=== PATIENT | male | born 1935 | race Caucasian/White ===

== ENCOUNTER → 2018-01-24 06:56 | Outpatient (CLI) | payer MEDICARE, BC | END | disposition home or self-care (01) | LOC: D.CT 01-17 16:00 | DX: I73.9 Peripheral vascular disease, unspecified (principal) ==

== ENCOUNTER 2018-02-05 07:40 | Inpatient (IN) | payer MEDICARE, BC ==
[2018-02-03 13:31] LABS: APPEARANCE CLEAR (CLEAR); BILIRUBIN NEGATIVE (NEGATIVE); COLOR YELLOW (YELLOW); GLUCOSE NEGATIVE (NEGATIVE); KETONE NEGATIVE (NEGATIVE); NITRITE NEGATIVE (NEGATIVE); PROTEIN NEGATIVE (NEGATIVE); SPECIFIC GRAVITY 1.015 (1.005-1.020); UROBILINOGEN NORMAL (NORMAL)
[2018-02-03 13:35] LABS: BASOPHILS 0.2 % (0-2); EOSINOPHILS 1.2 % (0-7); HEMATOCRIT 41.1 % (42.0-54.0); IMMATURE GRANULOCYTES 0.4 % (0-5); LYMPHOCYTES 23.9 % (15-50); MCH 30.4 pg (26.0-34.0); MCHC 34.1 g/dL (31.0-37.0); MCV 89.3 fL (80.0-100.0); MEAN PLATELET VOLUME 9.7 fL (7.4-10.4); MONOCYTES 8.9 % (2-11); NEUTROPHILS 65.4 % (40-80); PLATELET COUNT 171 10x3/uL (130-400); RDW 13.6 % (11.5-14.5); WBC 8.5 10x3/uL (4.8-10.8)
[2018-02-03 14:10] LABS: APTT 33.9 SECONDS (22.8-39.4); INR 1.27 (0.85-1.17); PROTIME 15.4 SECONDS (11.6-15.0)
[2018-02-03 14:20] LABS: ANION GAP 13.5 mmol/L (8-16); BILIRUBIN - TOTAL 0.69 mg/dL (0.2-1.3); CALCIUM 9.3 mg/dL (8.5-10.1); CARBON DIOXIDE 27.8 mmol/L (21.0-32.0); CREATININE - SERUM 1.1 mg/dL (0.6-1.3); POTASSIUM - SERUM 4.3 mmol/L (3.5-5.1); PROTEIN - SERUM 7.3 g/dL (6.4-8.2)
[~2018-02-05] VITALS: Ht 177.8 cm; Wt 93.0 kg
[2018-02-05] VITALS (32 sets, daily range): BP systolic 106–149; BP diastolic 53–77; BMI 27.6; BMI 28.7
--- NOTE | ~2018-02-05 | MORECARE ---
CASE MANAGEMENT DISCHARGE SUMMARY PATIENT: GRACE DAIGLE UNIT: [id number] ADM DATE: 02/05/18 AGE: 82 : 35 SEX: M ROOM/BED: D[facility] AUTHOR: ARUN,DOC PHYSICIAN: REFERRING PHYSICIAN: JACINTO PINK MD DATE OF SERVICE: 02/07/18 Discharge Plan Patient Name: GRACE DAIGLE Facility: [facility]:[place] : 1935 Planned Disposition: Home Anticipated Discharge Date: Discharge Date: 02/07/2018 Expected LOS: Initial Reviewer: [email or web address] Initial Review Date: 02/06/2018 Generated: 02/07/18 3:22 pm Comments DCP- Discharge Planning Updated by [email or web address]: Marybel Salomon on 02/06/18 11:[address] Patient Name: GRACE DAIGLE Admission Status: Urgent Accout number: [id number] Admission Date: 02-05-2018 : 1935 Admission Diagnosis: Attending: JACINTO PINK Current LOS: 1 Anticipated DC Date: Planned Disposition: Home Primary Insurance: MEDICARE A & B Discharge Planning Comments: CM met with patient at bedside after obtaining verbal consent. Patient states he plans on returning home after discharge with his . Patient states he will have family transport him home via private vehicle. Patient denies any discharge needs at this time. CM will continue to follow and assist as needed for discharge planning / needs. Computer Networking Instructor: Marybel Salomon DCPIA - Discharge Planning Initial Assessment Updated by [email or web address]: Marybel Salomon on 02/06/18 12:22 pm * Is the patient Alert and Oriented? Yes * How many steps to enter\exit or inside your home? * PCP Yomaira * Pharmacy [facility] until end of the year then will switch to [facility] on Feb 18 2018 * Preadmission Environment Home with Family * ADLs Independent * Equipment None * List name and contact numbers for known caregivers / representatives who currently or will assist patient after discharge: Delmi Daigle spouse [phone] * Verbal permission to speak to the caregivers and representatives has been obtained from the patient. N/A * Community resources currently utilized None * Additional services required to return to the preadmission environment? No * Can the patient safely return to the preadmission environment? Yes * Has this patient been hospitalized within the prior 30 days at any hospital? No Last DP export: 02/06/18 11:26 Patient Name: GRACE DAIGLE Page [id number] at 1423 All edits/amendments must be made on the electronic document DICTATION DATE: 02/07/181421 [employer] FORCES MEDICAL SERGEANT: MAYNOR 02/07/181421 RPT#: [id number] DC DATE:02/07/18 STATUS: DIS IN [facility] [address] [place] [address] END OF REPORT
--- NOTE | ~2018-02-05 | OP ---
PATIENT NAME: GRACE DAIGLE MEDICAL RECORD: [id number] :35 LOCATION:D.[facility] D.CV03 ADMISSION DATE:02/05/18 SURGEON: JACINTO PINK MD DATE OF OPERATION: 02/05/2018 SURGEON: Jacinto Pink MD CENTRIFUGAL CASTING MACHINE TENDER: Dr. Max ANESTHESIA: General endotracheal, Dr. Espana. OPERATION PERFORMED: Endovascular stent repair of aortoiliac aneurysm. OPERATION PERFORMED: 1. Percutaneous access bilaterally with a closure device, #09949-11. 2. Catheter sheath placement into the aorta, 85739-79. 3. Endovascular stent repair utilizing an aortobiiliac endograft, 24440. 4. Extension prosthesis distally, 69501. PREOPERATIVE DIAGNOSIS: Large aortoiliac artery aneurysm. POSTOPERATIVE DIAGNOSIS: Large aortoiliac artery aneurysm. INDICATION FOR OPERATION: Large saccular abdominal aortic aneurysm. Contrast 160 mL, fluoroscopy time 21 minutes at 55 seconds. ESTIMATED BLOOD LOSS: Less 100 mL. FINDINGS OF THE OPERATION: 1. Aortogram demonstrated the large aortoiliac artery aneurysm and define the anatomic features. 2. Post-repair aortogram demonstrates no endoleak. 3. 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 4. Aortogram and right external iliac and common femoral artery arteriogram demonstrates no leaks and no stenosis after ProGlide closure of the large sheath defect. DESCRIPTION OF PROCEDURE: After informed consent, adequate preoperative medication evaluation, the patient was brought to the operating room, placed on the table in the supine position. After induction of general endotracheal anesthesia and application of appropriate monitoring devices, the chest, abdomen, and both legs were prepped and draped in sterile field, utilizing Betadine scrub, alcohol, and Betadine solution. Betadine-impregnated drape was also used. Ultrasound guidance was used for access on the right and utilizing a micropuncture technique, a 4-British sheath was placed. The contralateral side was cannulated with a micropuncture catheter exchanged for a 7-British sheath, which was secured. Attention was then turned towards the right groin. A small incision made and dissection carried down to the vessel utilizing 2 ProGlide sheath closure devices at 10 o'clock and 2 o'clock were deployed. Exchange was made for a 6-British sheath. The patient was given a calculated dose of heparin. The right exchange for a Glidewire was made with ELGX stiff wire and the large sheath deployed on the ipsilateral side. A 25 x 100 x 20 x 40 AFX2 bifurcated device was loaded onto the stiff wire and advanced. A contralateral wire was OPERATIVE REPORT [id number] GRACE DAIGLE advanced through the sheath and snared on the contralateral side and brought through the sheath. The device was advanced into the aorta and the proximal limb deployed. The contralateral side was then deployed as well as the right iliac limb. Attention was then turned towards the renal arteries and an aortogram was performed and the AFX extension placed and deployed just below the renal arteries. Post-deployment arteriogram demonstrated good flow into both renal arteries. Attention was then turned towards the right common iliac artery and an arteriogram was performed, delineating the takeoff of the right hypogastric artery. An extension device was then deployed from the right iliac limb and terminating at the takeoff of the hypogastric artery. The sheath was cannulated with the coated balloon and the aorta and limbs were dilated. An aortogram demonstrated good placement of all devices and no endoleaks. The patient was then given a calculated dose of protamine to reverse the heparin. The ProGlide sutures were deployed on the right and the sheaths and wires removed. Attention was then turned toward the left groin and an 8-British Angio-Seal deployed with good hemostasis on both sides. After protamine administration, hemostasis was achieved. The arteriogram performed after closure of the Perclose demonstrated no stenosis, no extravasation of contrast and good flow through the right common femoral artery. The right groin was closed utilizing a 3-0 Vicryl, deep subcutaneous sutures and skin approximated with two 5-0 Monocryl suture. Sterile dressings were applied. The patient tolerated the procedure well and had excellent distal perfusion and was transferred to the CV ICU in satisfactory condition. TRANSINT:[id number] Voice Confirmation ID: [id number] DOCUMENT ID: [id number] JACINTO PINK MD at 1313 CC: [id number] DICTATION DATE: 02/05/18 1733 SENIOR MARKETING ASSOCIATE: 02/06/18 0032 DIS IN 02/07/18 [address] [place] [place] [address]
--- NOTE | ~2018-02-05 | MORECARE ---
CASE MANAGEMENT DISCHARGE SUMMARY PATIENT: GRACE DAIGLE UNIT: [id number] ADM DATE: 02/05/18 AGE: 82 : 35 SEX: M [facility] AUTHOR: ARUN,DOC PHYSICIAN: REFERRING PHYSICIAN: JACINTO PINK MD DATE OF SERVICE: 02/06/18 Discharge Plan Patient Name: GRACE DAIGLE Facility: [facility]:[place] : 1935 Planned Disposition: Home Anticipated Discharge Date: Discharge Date: Expected LOS: Initial Reviewer: [email or web address] Initial Review Date: 02/06/2018 Generated: 02/06/18 1:26 pm Comments DCP- Discharge Planning Updated by [email or web address]: Marybel Salomon on 02/06/18 11:[address] Patient Name: GRACE DAIGLE Admission Status: Urgent Accout number: [id number] Admission Date: 02-05-2018 : 1935 Admission Diagnosis: Attending: JACINTO PINK Current LOS: 1 Anticipated DC Date: Planned Disposition: Home Primary Insurance: MEDICARE A & B Discharge Planning Comments: CM met with patient at bedside after obtaining verbal consent. Patient states he plans on returning home after discharge with his . Patient states he will have family transport him home via private vehicle. Patient denies any discharge needs at this time. CM will continue to follow and assist as needed for discharge planning / needs. Mixing Plant Operator: Marybel Salomon DCPIA - Discharge Planning Initial Assessment Updated by [email or web address]: Marybel Salomon on 02/06/18 12:22 pm * Is the patient Alert and Oriented? Yes * How many steps to enter\exit or inside your home? * PCP Yomaira * Pharmacy [facility] until end of the year then will switch to [facility] on Feb 18 2018 * Preadmission Environment Home with Family * ADLs Independent * Equipment None * List name and contact numbers for known caregivers / representatives who currently or will assist patient after discharge: Delmi Daigle spouse [phone] * Verbal permission to speak to the caregivers and representatives has been obtained from the patient. N/A * Community resources currently utilized None * Additional services required to return to the preadmission environment? No * Can the patient safely return to the preadmission environment? Yes * Has this patient been hospitalized within the prior 30 days at any hospital? No Patient Name: GRACE DAIGLE Page 25555 at 1226 All edits/amendments must be made on the electronic document DICTATION DATE: 02/06/186 MULTIPLEX OPERATOR: MAYNOR 02/06/18 1226 RPT#: [id number] DC DATE: STATUS: ADM IN [facility] [address] [place] [address] END OF REPORT
[~2018-02-05 07:40] MED LIST: ALTACE10 MG PO; ASPIRIN EC81 M1 PO; FLOMAX0.4 MG PO; LIPITOR40 MG PO; MOBIC7.5 MG PO; NAPROSYN500 MG PO; OMEPRAZOLE20 M1 PO; ZYLOPRIM300 MG PO
[2018-02-05] MEDS ORDERED: MULTI-DAY VITAM1 TAB PO (08:29)
[2018-02-05] MEDS ORDERED: GINKGO BILOBA120 MG PO (08:30)
[2018-02-06] VITALS (31 sets, daily range): BP systolic 92–131; BP diastolic 46–73; Ht 177.8 cm; Wt 93.0 kg
[2018-02-06 06:17] LABS: HEMATOCRIT 35.5 % (42.0-54.0); MCH 29.9 pg (26.0-34.0); MCHC 33.8 g/dL (31.0-37.0); MCV 88.3 fL (80.0-100.0); MEAN PLATELET VOLUME 9.5 fL (7.4-10.4); RBC 4.02 10x6/uL (4.20-6.10); RDW 13.3 % (11.5-14.5); WBC 13.3 10x3/uL (4.8-10.8)
[2018-02-06 06:30] LABS: CALC OSMOLALITY 283 mosm/kg (275-300); CARBON DIOXIDE 24.2 mmol/L (21.0-32.0); CHLORIDE - SERUM 105 mmol/L (98-107); POTASSIUM - SERUM 4.2 mmol/L (3.5-5.1); SODIUM 140 mmol/L (136-145); UREA NITROGEN 17 mg/dL (7-18); eGFR NON AFRICAN AMERICAN 76 mL/min (90-120)
[2018-02-06 06:32] LABS: GLUCOSE 149 mg/dL (74-106)
[2018-02-07] VITALS (11 sets, daily range): BP systolic 95–124; BP diastolic 48–73
[2018-02-07 06:21] LABS: MCHC 33.3 g/dL (31.0-37.0); MCV 89.9 fL (80.0-100.0); MEAN PLATELET VOLUME 9.5 fL (7.4-10.4); RBC 3.67 10x6/uL (4.20-6.10); RDW 13.5 % (11.5-14.5)
[2018-02-07 06:23] LABS: WBC 9.8 10x3/uL (4.8-10.8)
[2018-02-07 06:32] LABS: CALC OSMOLALITY 282 mosm/kg (275-300); CALCIUM 8.2 mg/dL (8.5-10.1); CARBON DIOXIDE 27.8 mmol/L (21.0-32.0); CHLORIDE - SERUM 106 mmol/L (98-107); GLUCOSE 104 mg/dL (74-106); POTASSIUM - SERUM 3.8 mmol/L (3.5-5.1); SODIUM 141 mmol/L (136-145); UREA NITROGEN 17 mg/dL (7-18); eGFR NON AFRICAN AMERICAN 76 mL/min (90-120)
[2018-02-07] MEDS ORDERED: COLACE100 MG PO (09:32)
== END 2018-02-07 11:59 | disposition home or self-care (01) | DRG 269 ==
LOC: D.CVICU 07:40 → D.SDCHOLD 07:40 → D.CVICU 14:50
PROVIDERS: Internal Medicine Cardiovascular Disease; Thoracic Surgery (Cardiothoracic Vascular Surgery)
PROC: 04V03DZ Restriction of Abdominal Aorta with Intraluminal Device, Percutaneous Approach (ICD-10-PCS; principal; 2018-02-05 14:45)
DX: I71.4 Abdominal aortic aneurysm, without rupture (principal); I10 Essential (primary) hypertension; E78.5 Hyperlipidemia, unspecified; K21.9 Gastro-esophageal reflux disease without esophagitis

== ENCOUNTER → 2018-08-25 09:24 | Outpatient (CLI) | payer MEDICARE, BC ==
[2018-02-06 08:15] VITALS: BMI 29.4
[~2018-08-25 09:24] MED LIST changes: +COLACE100 MG PO; +GINKGO BILOBA120 MG PO; +MULTI-DAY VITAM1 TAB PO
== END | disposition home or self-care (01) ==
LOC: D.CT 09:24
PROVIDERS: ATTEND Internal Medicine Cardiovascular Disease
DX: I71.4 Abdominal aortic aneurysm, without rupture (principal)

== ENCOUNTER → 2019-08-17 08:11 | Outpatient (CLI) | payer MEDICARE, BC ==
[2018-02-06 08:15] VITALS: BMI 29.4
== END | disposition home or self-care (01) ==
LOC: D.NM 08:11 → D.CT 13:00
PROVIDERS: ATTEND Internal Medicine Cardiovascular Disease
DX: I71.4 Abdominal aortic aneurysm, without rupture (principal); R93.1 Abnormal findings on diagnostic imaging of heart and coronary circulation; M79.652 Pain in left thigh

== ENCOUNTER → 2020-08-11 12:13 | Outpatient (CLI) | payer MEDICARE, BC ==
[2020-01-12 13:16] VITALS: BMI 25.1
[~2020-08-11 12:13] MED LIST changes: +Decadron INJ IV; +IPRAT-ALBUT 0.5-3 ML UPD; +LOVENOX40 MG/0.4 SC; +MEDROL DOSE PACK4 MG PO; +MUCINEX DM ER1 EAC1 PO; +PROTONIX40 MG PO; +PULMICORT0.5 MG/21 UPD; +TESSALON PERLE100 MG PO
== END | disposition home or self-care (01) ==
LOC: D.CT 08-10 10:00
PROVIDERS: ATTEND Internal Medicine Cardiovascular Disease
DX: I71.4 Abdominal aortic aneurysm, without rupture (principal)